=== PATIENT | female | born 1970 | race Caucasian/White ===

== ENCOUNTER → 2019-03-06 | Outpatient (CLI) | payer MEDICARE, OTHER ==
--- NOTE | 2019-03-07 00:02 | MR ---
EXAMINATION TYPE: MR foot RT wo/w con DATE OF EXAM: 03/06/2019 COMPARISON: None HISTORY: Lump on the foot CONTRAST: Standard multiplanar, multisequence MRI departmental protocol utilizing 7.5 mL intravenous gadolinium contrast. FINDINGS: The metatarsals are intact. Ankle mortise is anatomic. The collateral ligaments are intact. There is a mild ankle joint effusion. The medial and lateral flexor tendons of the ankle appear inta ct. Achilles tendon appears normal. Plantar fascia appears normal. There is minimal subcutaneous will a over the forefoot. There is no evidence of a soft tissue mass. There are small degenerative cysts i n the first metatarsal head. There is mild hallux valgus. IMPRESSION: Mild subcutaneous edema of the forefoot. No evidence of a soft tissue mass. Mild ankle joint effusion consistent with nonspecific synovitis. No evidence of ligament or tendon te ar. No fracture.
== END | disposition home or self-care (01) ==
LOC: RADMRIMAIN 15:31
PROVIDERS: ATTEND Family Medicine
DX: M25.471 Effusion, right ankle (principal)
CPT/HCPCS: 73720; A9585